=== PATIENT | male | born 1950 | race Caucasian/White ===

== ENCOUNTER 2016-10-12 13:02 | Emergency (ER) | payer OTHER ==
[~2016-10-12] VITALS: Ht 172.7 cm; Wt 80.0 kg
[~2016-10-12 13:02] MED LIST: ASPI81 PO; ATOR10TA PO; LISI-360 PO; MELO7.5 PO; TAB-TAB PO
[2016-10-12] MEDS ORDERED: ACETAMINOPHEN/HYDROcodone 325 MG/5 MG TAB PO ONE (13:45)
--- NOTE | 2016-10-12 13:46 | PD ---
HPI Chief Complaint: FALL Time Seen by Provider: 13:46 Travel History International Travel<30 days: No Contact w/Intl Traveler<30days: No History of Present Illness HPI 66-year-old male with a history of hypertension and hyperlipidemia is brought to the emergency department by EMS for evaluation of fall. 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 States that he went to move a pallet and the chain saw driver of the forklift did not see him and accidentally hit him with a pallet on the right foot. States that this caused him to be knocked over he believes landing on his outstretched left hand. States that it all happened very quickly and he is not exactly sure how he landed. He states that he doesn't think he hit his head or lost consciousness but is not entirely sure. He is complaining of pain in his right foot, left ankle, left wrist and a headache. He denies any lightheadedness, dizziness, nausea, vomiting, neck pain, back pain, numbness or tingling, weakness. Pain is aggravated with movement. Symptoms are moderate in severity. Denies anticoagulation. No other complaints. PFSH Past Medical History Depression: Yes Cancer: No Cardiac Catheterization: No Cardiovascular Problems: No High Cholesterol: Yes Diabetes: No Diminished Hearing: No Hepatitis: No Hiatal Hernia: No Hypertension: Yes Respiratory: No Myocardial Infarction: No Thyroid Disease: No Past Surgical History Abdominal Surgery: Yes (APPENDECTOMY) Appendectomy: Yes Joint Replacement: Yes (TMJ SURGERY) Oral Surgery: Yes (TMJ ) Pacemaker: No Other Surgery: Yes (PLASTIC SURGERY ON NECK) Social History Alcohol Use: Yes (RARELY) Tobacco Use: No Substance Use: No Allergies-Medications (Allergen,Severity, Reaction): Coded Allergies: No Known Allergies (Verified , 10/12/16) Reported Meds & Prescriptions Reported Meds & Active Scripts Active Lortab (Hydrocodone-Acetaminophen) 5-325 Mg Tab 1 Tab PO Q6H PRN Review of Systems Except as stated in HPI: all other systems reviewed are Neg Physical Exam Narrative GENERAL: Well-nourished and well-developed pleasant male patient in no acute distress. SKIN: Abrasion to left lateral ankle. No lacerations. HEAD: Normocephalic and atraumatic. No bony point tenderness or crepitus noted throughout the scalp and facial bones. EYES: No scleral icterus, injection, or drainage. PERRLA. EOMI. No hyphema present. ENT: No septal hematoma or hemotympanum noted. Oropharynx is clear and the airway is patent. NECK: Supple and the trachea is midline. No obvious deformities, crepitus, or midline tenderness noted. CARDIOVASCULAR: Regular rate and rhythm. RESPIRATORY: Breath sounds are equal bilaterally with no accessory muscle use, wheezing, rhonchi, or crackles. GASTROINTESTINAL: Abdomen is soft, non-tender, and nondistended. MUSCULOSKELETAL: Mild swelling and pain in the left wrist with decreased range of motion. Swelling to the lateral aspect of the left ankle with tenderness to palpation. Tenderness to palpation of dorsal aspect of right foot. No obvious deformities, cyanosis, or ecchymosis is present throughout the upper and lower extremities. Patient has full range of motion without any signs of neurovascular compromise. Radial pulses are 2+ bilaterally. DP pulses are 2+ bilaterally. BACK: Nontender without any obvious deformities, bony point tenderness, or crepitus noted throughout the thoracic and lumbar vertebrae. NEUROLOGICAL: Awake, alert, and oriented. Normal speech and gait. Cranial nerves are grossly intact. Data Data Last Documented VS Vital Signs Date Time Temp Pulse Resp B/P Pulse Ox O2 Delivery O2 Flow Rate FiO2 10/12/16 13:51 70 18 161/86 97 Room Air 10/12/16 13:[address] Brain W/O Iv Contrast(Rout) (10/12/16 13:42) Ankle, Complete ([id number]) (10/12/16 13:42) Foot, Complete ([id number]) (10/12/16 13:42) Wrist, Complete ([id number]) (10/12/16 13:42) Acetamin-Hydrocod 325-5 Mg (Calder 5-325 (10/12/16 13:45) Splint Or Brace Apply/Monitor (10/12/16 15:10) MDM Medical Decision Making Medical Screen Exam Complete: Yes Emergency Medical Condition: Yes Differential Diagnosis Contusion versus sprain versus fracture Narrative Course 66-year-old male is brought to the emergency department for evaluation of fall after being knocked over by a forklift at work. Patient is afebrile, vital signs are stable. Denies head trauma, unsure of loss of consciousness. No focal neurologic deficits. No obvious deformities. All extremities are neurovascularly intact. CT of the head and x-ray imaging has been ordered and is pending. Patient is administered Lortab 5325 milligrams. X-ray of the left wrist shows a small fragment of bone adjacent to the ulnar styloid which the radiologist is reading as well corticoid and possibly old. The patient has tenderness to palpation just over this fragment and states he does not have a history of prior wrist injury therefore will treat this as an acute fracture and place him in a sugar tong splint. X-ray of the right foot is negative for any acute abnormalities. X-ray of the left ankle shows soft tissue swelling but is negative for any acute bony abnormalities or fracture. Head CT is negative. The patient reports improvement of symptoms with pain medication. He is placed in a sugar tong splint and instructed to follow-up as an outpatient with an orthopedist. Patient verbalizes understanding and agreement with treatment plan. I discussed the case with my attending physician Dr. Enrique who is aware of the patients history, physical examination findings, and treatment plan. Diagnosis Primary Impression: Left wrist fracture Qualified Code: S62.102A - Left wrist fracture, closed, initial encounter Additional Impression: Contusion of left ankle Qualified Code: S90.02XA - Contusion of left ankle, initial encounter Referrals: Orthopedist Patient Instructions: General Instructions Additional Instructions: Splint. Elevate. Apply ice for 20 minutes on, 20 minutes off. Take medication as prescribed with food and a full glass of water. Do not take Lortab with alcohol or driving. Follow-up with your Primary Care Physician. Return to the ED for any acute worsening of symptoms. Med/Other Pt SpecificInfo: Prescription(s) given Scripts Hydrocodone-Acetaminophen (Lortab)5-325 Mg Tab1 Tab PO Q6H PRN (PAIN GREATER THAN 6) #15 TAB Ref 0 Prov:George Enrique MD 10/12/16 Disposition: 01 DISCHARGE HOME Condition: Stable Wendy Miguel Oct 12, 2016 13:46
[2016-10-12 13:47] VITALS: BP 161/86; PULSE 66; RESP 18; TEMP 98.4; O2SAT 97
[2016-10-12 13:51] VITALS: BP 161/86; PULSE 70; RESP 18; O2SAT 97
--- NOTE | 2016-10-12 14:42 | RADRPT ---
EXAM DATE/TIME: 10/12/2016 14:36 [facility] COMPARISON: FOOT RIGHT COMPLETE ([id number]), October 12, 2016, 14:30. INDICATIONS : Patient states left wrist pain after a forklift hit him at work today. MEDICAL HISTORY : None. SURGICAL HISTORY : None. ENCOUNTER: Initial ACUITY: 1 day PAIN SCORE: 7/10 LOCATION: Left Wrist FINDINGS: The examination demonstrates a small well-corticated bone fragment adjacent to the ulnar styloid. Thi s has an appearance most consistent with an old ulnar styloid injury. No definite acute fracture is s een. No retained foreign body is present. CONCLUSION: 1. There is a small fragment of bone adjacent to the ulnar styloid which is well-corticated may be ol d. No definite acute fracture is seen. Todd Bruner MD on October 12, 2016 at 14:39 Board Certified Radiologist. This report was verified electronically.
--- NOTE | 2016-10-12 14:43 | RADRPT ---
EXAM DATE/TIME: 10/12/2016 14:30 [facility] COMPARISON: ANKLE LEFT COMPLETE ([id number]), October 12, 2016, 14:26. INDICATIONS : Patient states right foot pain after a forklift hit him at work today. MEDICAL HISTORY : None. SURGICAL HISTORY : None. ENCOUNTER: Initial ACUITY: 1 day PAIN SCORE: 7/10 LOCATION: Right Foot FINDINGS: The examination demonstrates arthritic changes within the metatarsal phalangeal joint of the first di git. The bony mineralization is normal. No retained foreign body is seen. No acute fractures are seen . CONCLUSION: 1. 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 No acute fracture. Todd Bruner MD on October 12, 2016 at 14:41 Board Certified Radiologist. This report was verified electronically.
--- NOTE | 2016-10-12 14:54 | RADRPT ---
EXAM DATE/TIME: 10/12/2016 14:46 [facility] COMPARISON: No previous studies available for comparison. INDICATIONS : Trauma, fall backwards onto head today. RADIATION DOSE: 39.54 CTDIvol (mGy) MEDICAL HISTORY : Hypertension. SURGICAL HISTORY : None. ENCOUNTER: Initial ACUITY: 1 day PAIN SCALE: 7/10 LOCATION: Bilateral head TECHNIQUE: Multiple contiguous axial images were obtained of the head. Using automated exposure control and adj ustment of the mA and/or kV according to patient size, radiation dose was kept as low as reasonably a chievable to obtain optimal diagnostic quality images. FINDINGS: CEREBRUM: The ventricles are normal for age. No evidence of midline shift, mass lesion, hemorrhage or acute in farction. No extra-axial fluid collections are seen. POSTERIOR FOSSA: The cerebellum and brainstem are intact. The 4th ventricle is midline. The cerebellopontine angle i s unremarkable. EXTRACRANIAL: The visualized portion of the orbits is intact. SKULL: The calvaria is intact. No evidence of skull fracture. CONCLUSION: 1. No acute intracranial abnormality identified. Todd Bruner MD on October 12, 2016 at 14:51 Board Certified Radiologist. This report was verified electronically.
--- NOTE | 2016-10-12 15:12 | RADRPT ---
EXAM DATE/TIME: 10/12/2016 14:26 [facility] COMPARISON: No previous studies available for comparison. INDICATIONS : Patient states left ankle pain after a forklift hit him today. MEDICAL HISTORY : None. SURGICAL HISTORY : None. ENCOUNTER: Initial ACUITY: 1 day PAIN SCORE: 7/10 LOCATION: Left Ankle FINDINGS: There are degenerative changes within the ankle mortise. No acute fractures seen. There is moderate s oft tissue swelling. CONCLUSION: 1. Osteoarthritic changes. 2. Soft tissue swelling. 3. No acute fracture. Todd Bruner MD on October 12, 2016 at 15:09 Board Certified Radiologist. This report was verified electronically.
[2016-10-12] MEDS ORDERED: HYDR-3533 PO (15:16)
[2016-10-12 16:11] VITALS: BP 171/92; PULSE 70; RESP 18; O2SAT 98
== END 2016-10-12 16:31 | disposition home or self-care (01) ==
LOC: NEPC 13:02
DX: S62.102A Fracture of unspecified carpal bone, left wrist, initial encounter for closed fracture (principal); S90.02XA Contusion of left ankle, initial encounter; R51 Headache; M79.671 Pain in right foot; I10 Essential (primary) hypertension; E78.00 Pure hypercholesterolemia, unspecified; W18.39XA Other fall on same level, initial encounter; W31.89XA Contact with other specified machinery, initial encounter; Y92.512 Supermarket, store or market as the place of occurrence of the external cause; Y99.0 Civilian activity done for income or pay; Z86.59 Personal history of other mental and behavioral disorders
CPT/HCPCS: 29105; 70450; 73110; 73610; 73630